=== PATIENT | female | born 1955 | race Caucasian/White ===

== ENCOUNTER 2024-07-28 09:57 | Emergency (ER) | payer BC, MEDICAID ==
[~2024-07-28] VITALS: Ht 170.2 cm; Wt 61.4 kg
[2024-07-28 10:01] VITALS: BP 112/73; PULSE 61; RESP 18; TEMP 97.4; O2SAT 93
[2024-07-28] MEDS ORDERED: TRIA15CR61 TOP (12:06)
== END 2024-07-28 12:41 | disposition home or self-care (01) ==
LOC: ER 09:58
DX: L30.8 Other specified dermatitis (principal); F17.200 Nicotine dependence, unspecified, uncomplicated
CPT/HCPCS: 99283